=== PATIENT | male | born 1960 | race Caucasian/White ===

== ENCOUNTER 2023-11-25 21:34 | Emergency (ER) | payer MEDICAID, OTHER, SELFPAY ==
[2023-11-25 21:45] VITALS: BP 148/85; PULSE 121; RESP 20; TEMP 37; O2SAT 95; BMI 20.5
--- NOTE | 2023-11-25 22:06 | ED.GENADULT ---
HPI - General Adult General Chief complaint: Urogenital-Male Stated complaint: Px with Urination, Cx pt Time Seen by Provider: 11/25/23 21:39 Source: patient Mode of arrival: Ambulatory History of Present Illness HPI narrative: 63-year-old male with a history of metastatic colon cancer. Is currently being treated by Oncology who is here for evaluation of pain with urination and concerns for UTI. 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 He states this occurred after a surgery then he and. He was told that nothing can be done surgery arrives to fix the fistula. He has been having quite a bit of pain specifically with urination. He was told that potentially he needed to pursue hospice because of the discomfort. He denies any fevers. No back pain. Does have pain medication at home that he has been taking but it is not helping with his urination. Related Data Previous Rx's Medication Instructions Recorded phenazopyridine 100 mg tablet 100 mg PO TID PRN pain 6 doses #6 11/25/23 (Pyridium) tabs sulfamethoxazole 800 1 tab PO BID 3 days #6 tabs 11/25/23 mg-trimethoprim 160 mg tablet (Bactrim DS) Review of Systems Review of Systems Narrative: See HPI Patient History Social History Smoking Status: Current every day smoker Smoking Status: Current every day smoker tobacco type: cigarettes alcohol intake frequency: a few times a week Substance Use Type: marijuana and amphetamines Exam Initial Vital Signs Initial Vital Signs: Vital Signs Temperature 98.6 F 11/25/23 21:45 Pulse Rate 121 H 11/25/23 21:45 Respiratory Rate 20 11/25/23 21:45 Blood Pressure 148/85 H 11/25/23 21:45 Pulse Oximetry 95 11/25/23 21:45 Oxygen Delivery Method Room Air 11/25/23 21:45 Const General: cooperative and comfortable HENMT Head: normal to inspection Resp Effort & Inspection: normal respiratory effort Cardio Rate: regular rate Skin General: no rashes or lesions noted Neuro General: patient alert, patient awake and moves all extremities Extrem General: capillary refill normal Course Orders Ordered: ED Orders 11/25/23 22:00 Urinalysis and Microscopic Stat Urine Culture Stat Discontinued Medications Phenazopyridine HCl (Phenazopyridine 100 Mg Tablet) 100 mg PO NOW ONE Stop: 11/25/23 22:43 Last Admin: 11/25/23 22:52 Dose: 100 mg Documented By: AGUSTIN Trimethoprim/Sulfamethoxazole (Trimeth/Sulfa 160/800 (Ds) Tablet) 1 tab PO NOW ONE Stop: 11/25/23 22:43 Last Admin: 11/25/23 22:53 Dose: 1 tab Documented By: AGUSTIN Vital Signs Vital signs: Vital Signs - 8 hr 11/25/23 21:45 11/25/23 22:54 Temperature 98.6 F Pulse Rate 121 H 88 Respiratory Rate 20 16 Blood Pressure 148/85 H 144/88 H Pulse Oximetry 95 96 Oxygen Delivery Method Room Air Room Air Medical Decision Making Lab Data Lab results reviewed: Yes I reviewed the patient's lab results. Labs: Lab Results 11/25/23 Range/Units 22:00 Urine Color Brown Urine Appearance Cloudy Urine pH 7.5 (4.5-8.0) Ur Specific [place] 1.020 (1.000-1.035) Urine Protein 3+ H (Negative) Urine Glucose (UA) Negative (Negative) g/dL Urine Ketones Negative (NEGATIVE) Urine Occult Blood 3+ H (Negative) Urine Nitrate Negative (Negative) Urine Bilirubin Negative (NEGATIVE) Urine Urobilinogen 0.2 (0.2) E.U./dL Ur Leukocyte Esterase 2+ H (NEGATIVE) Urine RBC 30-100/hpf H (0-5/HPF) Urine WBC >100/hpf H (0-5/HPF) Ur Squamous Epith Cells 0-1 /hpf (0-5/HPF) Ur Transition Epith Cell 0-1/hpf (0-5/HPF) Urine Bacteria Many (>30) H (None) Vol Urine Centrifuged 10ml (spun) MDM Narrative Medical decision making narrative: Urinalysis today is consistent with a urinary tract infection which is not surprising given his presenting symptoms. He was given a dose of antibiotics here in the ER and a prescription was sent to the pharmacy he was choice. There were no prior urine cultures to compare. A urine culture was pending at the time of his discharge and he understands this and will be contacted when he would to change antibiotics based on the results of this. Low suspicion for pyelonephritis given his exam. We will also send home with Pyridium. He was instructed to contact his oncologist in his primary doctor for follow-up. He was given return precautions. He expressed understanding and agreement. Discharge Plan Departure Patient Disposition: Home Clinical Impression: Urinary tract infection Instructions: DI for Urinary Tract Infection (UTI) Activity Restrictions/Additional Instructions: Please take the antibiotics as directed. [facility] Recommend that you contact your oncologist to let them know that you are being treated for a urinary tract infection. Return to the emergency department for new symptoms. Prescriptions: New phenazopyridine [Pyridium] 100 mg tablet 100 mg PO TID PRN (Reason: pain) Qty: 6 0RF sulfamethoxazole-trimethoprim [Bactrim DS] 800-160 mg tablet 1 tab PO BID 3 Days Qty: 6 0RF Referrals: Sunita Villafuerte MD [Primary Care Provider] - Stand Alone Forms: Patient Portal/API
[2023-11-25 22:16] LABS: Appearance Urine UA CLOUDY; Bilirubin Urine UA NEGATIVE (NEGATIVE); Glucose Urine UA NEGATIVE (Negative); Ketones Urine UA NEGATIVE (NEGATIVE); Leukocyte Esterase Urine UA 2+ (NEGATIVE); Nitrite Urine UA NEGATIVE (Negative); Occult Blood Urine UA 3+ (Negative); Protein Urine UA 3+ (Negative); Urobilinogen Urine UA 0.2 E.U./dL (0.2); pH Urine UA 7.5 (4.5-8.0)
[2023-11-25 22:23] LABS: Bacteria Urine Many (>30); Color Urine UA BROWN; RBC Urine 30-100/HPF (0-5/HPF); Squamous Epithelial Cell Urine 0-1 /HPF (0-5/HPF); Transitional Epi Cells Urine 0-1/HPF (0-5/HPF); Urine Volume 10mL (spun); WBC Urine >100/HPF (0-5/HPF)
[2023-11-25] MEDS: PHENAZOPYRIDINE 100 MG TABLET PO (22:52)
[2023-11-25] MEDS: TRIMETH/SULFA 160/800 (DS) TABLET 1 TAB PO (22:53)
[2023-11-25 22:54] VITALS: BP 144/88; PULSE 88; RESP 16; O2SAT 96
== END 2023-11-25 22:59 | disposition home or self-care (01) ==
PROVIDERS: Emergency Provider Emergency Medicine; PCP Family Medicine
DX: N39.0 Urinary tract infection, site not specified (principal)
CPT/HCPCS: 81001; 87086; 99283